=== PATIENT | male | born 1955 | race Caucasian/White ===

== ENCOUNTER 2020-09-17 08:54 | Outpatient (CLI) | payer MEDICAID, MEDICARE, OTHER ==
[~2020-09-17 08:54] MED LIST: BECL8.7A7 INH; FLUO40CA2 PO; HYDR-2995 PO; TAMS0.4C2 PO; TRAM50TA2 PO
== END 2020-09-17 23:59 | disposition home or self-care (01) ==
LOC: CFH 08:54
DX: Z12.2 Encounter for screening for malignant neoplasm of respiratory organs (principal); J84.10 Pulmonary fibrosis, unspecified; F17.210 Nicotine dependence, cigarettes, uncomplicated
CPT/HCPCS: 71271